=== PATIENT | female | born 1975 | race Caucasian/White ===

== ENCOUNTER 2016-12-06 17:16 | Emergency (ER) | payer SELFPAY ==
[~2016-12-06] VITALS: Ht 160 cm; Wt 58.0 kg
[~2016-12-06 17:16] MED LIST: ADDE10 PO; ADDE20 PO; BETH25TA PO; DIAZ5 PO; PROT40TA PO; SERT100 PO; TOPI200 PO; TRAZ150T75 PO; XANA0.5T PO
[2016-12-06 17:18] VITALS: BP 129/84; PULSE 89; RESP 16; TEMP 98.2; O2SAT 99
[2016-12-06] MEDS ORDERED: ZOLO100T PO (17:34)
[2016-12-06] MEDS ORDERED: DIAZ5 PO (17:34)
[2016-12-06] MEDS ORDERED: TRAZ100T6 PO (17:34)
[2016-12-06] MEDS ORDERED: ALPR.5 PO (17:34)
[2016-12-06] MEDS ORDERED: ADDE20 PO (17:34)
[2016-12-06] MEDS ORDERED: TOPA100T11 PO (17:34)
--- NOTE | 2016-12-06 17:41 | PD ---
HPI Chief Complaint: Abdominal Pain Time Seen by Provider: 17:27 Travel History International Travel<30 days: No Contact w/Intl Traveler<30days: No Traveled to known affect area: No History of Present Illness HPI This 41-year-old female is complaining of abdominal pain. Says she's been having right upper quadrant pain since Saturday and that seems to be getting worse. It involves the right upper quadrant but also present in the right lower quadrant and radiates to the back she has a history of IBS. She has not been vomiting. She has had some nausea today she has frequent loose stools with her IBS. She is not aware of fever or chills. Patient said she did not had pain since her cholecystectomy but review of chart says showed that she was seen in the ER for right upper quadrant pain 6 weeks after cholecystectomy. She does drink alcohol PFSH Past Medical History ADD: Yes ADHD: Yes Anxiety: Yes Depression: Yes Diabetes: No Diminished Hearing: No Endocrine: No Gastrointestinal Disorders: Yes (IBS) GERD: Yes Headaches: Yes Implanted Vascular Access Dvce: Yes Psychiatric: Yes Respiratory: No Migraines: Yes Influenza Vaccination: Yes ?: Not Past Surgical History Abdominal Surgery: Yes (lap appy ) Appendectomy: Yes Body Medical Devices: mirana Cholecystectomy: Yes Other Surgery: No Social History Alcohol Use: Yes (daily) Tobacco Use: Yes (1 ppd) Substance Use: No Allergies-Medications (Allergen,Severity, Reaction): Coded Allergies: Penicillin (Verified Allergy, Severe, 12/06/16) Zithromax (Verified Allergy, Severe, HIVES, 12/06/16) Ciprofloxacin (Verified Allergy, Intermediate, became itchy after infusion. no hives no resp issues, 12/06/16) Reported Meds & Prescriptions Reported Meds & Active Scripts Active Reported Xanax (Alprazolam) 0.5 Mg Tab 0.5 Mg PO Q8H PRN Zoloft (Sertraline HCl) 100 Mg Tab 100 Mg PO DAILY Adderall (Amphetamine-Dextroamphetamine) 20 Mg Tab 20 Mg PO DAILY Avoid late evening doses. Space doses at least 4 to 6 hours if more than once/day dosing. Valium (Diazepam) 5 Mg Tab 5 Mg PO HS PRN Topamax (Topiramate) 100 Mg Tab 100 Mg PO BID Trazodone (Trazodone HCl) 100 Mg Tablet 100 Mg PO HS Review of Systems General / Constitutional: No: Fever, Chills Eyes: No: Diploplia, Blurred Vision HENT: No: Headaches, Vertigo Cardiovascular: No: Chest Pain or Discomfort, Palpitations Respiratory: No: Cough, Shortness of Breath Gastrointestinal: Positive: Nausea, Abdominal Pain Genitourinary: No: Urgency, Frequency Musculoskeletal: No: Myalgias, Arthralgias Skin: No Rash, No Itching Neurologic: No: Weakness, Dizziness Physical Exam Narrative GENERAL: Well-developed female SKIN: Focused skin assessment warm/dry. HEAD: Atraumatic. Normocephalic. EYES: Pupils equal and round. No scleral icterus. No injection or drainage. ENT: No nasal bleeding or discharge. Mucous membranes pink and moist. NECK: Trachea midline. No JVD. CARDIOVASCULAR: Regular rate and rhythm. No murmur appreciated. RESPIRATORY: No accessory muscle use. Clear to auscultation. Breath sounds equal bilaterally. GASTROINTESTINAL: Abdomen soft, right upper quadrant tenderness without guarding or rigidity, nondistended. Hepatic and splenic margins not palpable. MUSCULOSKELETAL: No obvious deformities. No clubbing. No cyanosis. No edema. NEUROLOGICAL: Awake and alert. No obvious cranial nerve deficits. Motor grossly within normal limits. Normal speech. PSYCHIATRIC: Appropriate mood and affect; insight and judgment normal. Data Data Last Documented VS Vital Signs Date Time Temp Pulse Resp B/P Pulse Ox O2 Delivery O2 Flow Rate FiO2 12/06/16 19:11 66 18 129/66 99 Room Air 12/06/16 17:18 98.2 Orders Complete Blood Count With Diff (12/06/16 17:35) Comprehensive Metabolic Panel (12/06/16 17:35) Lipase (12/06/16 17:35) Urinalysis - C+S If Indicated (12/06/16 17:35) Ct Abd/Pel W Iv Contrast(Rout) (12/06/16 17:35) Sodium Chlor 0.9% 1000 Ml Inj (Ns 1000 M (12/06/16 17:45) Ondansetron Inj (Zofran Inj) (12/06/16 17:45) Hydromorphone Pf Inj (Dilaudid Pf Inj) (12/06/16 17:45) Iohexol 350 Inj (Omnipaque 350 Inj) (12/06/16 18:32) Sodium Chlor 0.9% 1000 Ml Inj (Ns 1000 M (12/06/16 18:45) Hydromorphone Pf Inj (Dilaudid Pf Inj) (12/06/16 19:00) Ketorolac Inj (Toradol Inj) (12/06/16 19:00) Labs Laboratory Tests Test 12/06/16 12/06/16 17:50 18:00 White Blood Count 6.2 TH/MM3 Red Blood Count 4.39 MIL/MM3 Hemoglobin 13.8 GM/DL Hematocrit 39.7 % Mean Corpuscular Volume 90.3 FL Mean Corpuscular Hemoglobin 31.4 PG Mean Corpuscular Hemoglobin 34.7 % Concent Red Cell Distribution Width 11.9 % Platelet Count 285 TH/MM3 Mean Platelet Volume 8.0 FL Neutrophils (%) (Auto) 53.4 % Lymphocytes (%) (Auto) 36.9 % Monocytes (%) (Auto) 6.7 % Eosinophils (%) (Auto) 1.8 % Basophils (%) (Auto) 1.2 % Neutrophils # (Auto) 3.3 TH/MM3 Lymphocytes # (Auto) 2.3 TH/MM3 Monocytes # (Auto) 0.4 TH/MM3 Eosinophils # (Auto) 0.1 TH/MM3 Basophils # (Auto) 0.1 TH/MM3 CBC Comment DIFF FINAL Differential Comment Sodium Level 141 MEQ/L Potassium Level 3.8 MEQ/L Chloride Level 109 MEQ/L Carbon Dioxide Level 24.9 MEQ/L Anion Gap 7 MEQ/L Blood Urea Nitrogen 12 MG/DL Creatinine 0.76 MG/DL Estimat Glomerular Filtration 83 ML/MIN Rate Random Glucose 86 MG/DL Calcium Level 8.2 MG/DL Total Bilirubin 0.2 MG/DL Aspartate Amino Transf 10 U/L (AST/SGOT) Alanine Aminotransferase 20 U/L (ALT/SGPT) Alkaline Phosphatase 79 U/L Total Protein 6.7 GM/DL Albumin 3.6 GM/DL Lipase 164 U/L Urine Color YELLOW Urine Turbidity CLEAR Urine pH 6.0 Urine Specific [place] 1.018 Urine Protein NEG mg/dL Urine Glucose (UA) NEG mg/dL Urine Ketones NEG mg/dL Urine Occult Blood NEG Urine Nitrite NEG Urine Bilirubin NEG Urine Leukocyte Esterase NEG Urine RBC 0-2 /hpf Urine WBC 0-2 /hpf Urine Squamous Epithelial 0-5 /hpf Cells Urine Bacteria OCC /hpf Microscopic Urinalysis Comment CULT NOT INDICATED MDM Medical Decision Making Medical Screen Exam Complete: Yes Emergency Medical Condition: Yes Medical Record Reviewed: Yes Differential Diagnosis Differential includes irritable bowel syndrome, retained stone, Narrative Course Hemoglobin is 13.8, white count of 6000. Lipase is 164. Liver function tests are normal. CT scan does not show an etiology for the pain. Patient is complaining of pain and has been given pain medication. Patient has been complaining of pain while here and has been given 2 mg of IV Dilaudid and Toradol. She will be released with prescription for her consent to use temporarily. The pain persists she should follow-up with Dr. Madden Diagnosis Primary Impression: Abdominal pain Qualified Code: R10.11 - Right upper quadrant abdominal pain Scripts Ondansetron Odt (Zofran Odt)4 Mg Tab4 Mg SL Q8HR PRN (Nausea/Vomiting) #10 TAB Ref 0 Prov:Wil Merrill MD 12/06/16 Oxycodone-Acetaminophen (Percocet)10-325 mg Tab1 Tab PO Q4H PRN (PAIN) #20 TAB Ref 0 Prov:Wil Merrill MD 12/06/16 Disposition: 01 DISCHARGE HOME Condition: Stable Wil Merrill MD Dec 06, 2016 17:41
[2016-12-06] MEDS ORDERED: HYDROmorphone HCL PF 1 MG/ML VIAL IV PUSH ONE ×2 (17:45→19:00)
[2016-12-06] MEDS ORDERED: SODIUM CHLOR 0.9% 1000 ML INJ 1,000 ML IV ONE ×2 (17:45→18:45)
[2016-12-06] MEDS ORDERED: ONDANSETRON HCL 4 MG/2 ML VIAL IV PUSH ONE (17:45)
[2016-12-06 18:00] LABS: AUTOMATED NEUTROPHIL # 3.3 TH/MM3 (1.8-7.7); BASOPHIL # 0.1 TH/MM3 (0-0.2); BASOPHIL % 1.2 % (0.0-2.0); EOSINOPHIL # 0.1 TH/MM3 (0-0.4); EOSINOPHIL % 1.8 % (0.0-4.0); HEMATOCRIT 39.7 % (35.0-46.0); HEMO FLAGS DIFF FINAL; LYMPH % 36.9 % (9.0-44.0); LYMPHOCYTE # 2.3 TH/MM3 (1.0-4.8); MEAN CELL VOLUME 90.3 FL (80.0-100.0); MEAN CORPUSCULAR HEMOGLOBIN 31.4 PG (27.0-34.0); MEAN CORPUSCULAR HGB CONC 34.7 % (32.0-36.0); MONO % 6.7 % (0.0-8.0); NEUT % 53.4 % (16.0-70.0); PLATELET COUNT 285 TH/MM3 (150-450); RED BLOOD COUNT 4.39 MIL/MM3 (4.00-5.30); RED CELL DISTRIBUTION WIDTH 11.9 % (11.6-17.2); WHITE BLOOD COUNT 6.2 TH/MM3 (4.0-11.0)
[2016-12-06 18:09] LABS: CHLORIDE 109 MEQ/L (98-107); POTASSIUM 3.8 MEQ/L (3.5-5.1); SODIUM (NA) 141 MEQ/L (136-145)
[2016-12-06 18:11] LABS: BLOOD, URINE NEG (NEG); GLUCOSE,URINE NEG (NEG); KETONE, URINE NEG (NEG); NITRITE,URINE NEG (NEG)
[2016-12-06 18:13] LABS: ANION GAP 7 MEQ/L (5-15); BICARBONATE 24.9 MEQ/L (21.0-32.0); BLOOD UREA NITROGEN 12 MG/DL (7-18)
[2016-12-06 18:15] LABS: ALT (GPT) 20 U/L (10-53)
[2016-12-06 18:16] LABS: AST (GOT) 10 U/L (15-37); GLOMERULAR FILTRATION RATE 83 ML/MIN (>89)
[2016-12-06 18:17] LABS: TOTAL BILIRUBIN ADULT 0.2 MG/DL (0.2-1.0)
[2016-12-06 18:19] LABS: ALKALINE PHOSPHATASE 79 U/L (45-117)
[2016-12-06 18:32] LABS: URINE COLOR YELLOW (YELLW/STRAW)
[2016-12-06] MEDS ORDERED: IOHEXOL 350 MG/ML 10 ML VIAL (for RAD DIAG) IV ONE (18:32)
[2016-12-06 18:33] LABS: BACTERIA, URINE OCC /hpf; COMMENT (UR) CULT NOT INDICATED; CULTURE IF INDICATED CULT NOT INDICATED; RBC, URINE 0-2 /hpf (0-3); SQUAMOUS EPITHELIAL CELL URINE 0-5 /hpf (0-5); WBC, URINE 0-2 /hpf (0-5)
--- NOTE | 2016-12-06 18:40 | RADHPO ---
EXAM DATE/TIME: 12/06/2016 18:17 [facility] COMPARISON: CT ABDOMEN & PELVIS W CONTRAST, December 02, 2015, 19:44. INDICATIONS : Right upper quadrant pain. Nausea. IV CONTRAST: 85 cc Omnipaque 350 (iohexol) IV ORAL CONTRAST: No oral contrast ingested. RADIATION DOSE: 6.38 CTDIvol (mGy) MEDICAL HISTORY : Gastroesophageal reflux disease. Inflammatory bowel disease. SURGICAL HISTORY : Appendectomy. Cholecystectomy. ENCOUNTER: Initial ACUITY: 4 - 6 days PAIN SCALE: 7/10 LOCATION: Right upper quadrant TECHNIQUE: Volumetric scanning of the abdomen and pelvis was performed. Using automated exposure control and ad justment of the mA and/or kV according to patient size, radiation dose was kept as low as reasonably achievable to obtain optimal diagnostic quality images. FINDINGS: LOWER LUNGS: The visualized lower lungs are clear. LIVER: Homogeneous density without lesion. There is no dilation of the biliary tree. Previous cholecystecto my. SPLEEN: Normal size without lesion. PANCREAS: Within normal limits. KIDNEYS: Normal in size and shape. There is no mass, stone or hydronephrosis. ADRENAL GLANDS: Within normal limits. VASCULAR: There is no aortic aneurysm. BOWEL/MESENTERY: The stomach, small bowel, and colon demonstrate no acute abnormality. There is no free intraperitone al air or fluid. ABDOMINAL WALL: Within normal limits. RETROPERITONEUM: There is no lymphadenopathy. BLADDER: No wall thickening or mass. REPRODUCTIVE: IUD appears appropriately positioned. There is a 17 mm left ovarian cyst. No free fluid. INGUINAL: There is no lymphadenopathy or hernia. MUSCULOSKELETAL: Within normal limits for patient age. CONCLUSION: 1. I don't see an abnormality to explain the reported right upper quadrant pain. Patient has had prev ious cholecystectomy. No evidence of biliary obstruction. 2. Small cyst of the left ovary. Abdoul Butler MD on December 06, 2016 at 18:36 Board Certified Radiologist. This report was verified electronically.
[2016-12-06] MEDS ORDERED: KETOROLAC TROMETHAMINE 30 MG/ML (IVP) VIAL IV PUSH ONE (19:00)
[2016-12-06 19:11] VITALS: BP 129/66; PULSE 66; RESP 18; O2SAT 99
[2016-12-06] MEDS ORDERED: PERC10TA27 PO (19:37)
[2016-12-06] MEDS ORDERED: ZOFR4TAB3 SL (19:37)
[2016-12-06 20:05] VITALS: BP 116/65
[2016-12-06 20:08] VITALS: RESP 16
== END 2016-12-06 20:10 | disposition home or self-care (01) ==
LOC: PHED 17:16
DX: R10.11 Right upper quadrant pain (principal); Z88.0 Allergy status to penicillin; Z90.49 Acquired absence of other specified parts of digestive tract
CPT/HCPCS: 74177; 80053; 81001; 83690; 85025; 96361; 96374; 96375; 96376; 99285; J1170; J1885; J2405; J7030; Q9967

== ENCOUNTER 2017-07-16 10:23 | Emergency (ER) | payer SELFPAY ==
[~2017-07-16] VITALS: Ht 160 cm; Wt 58.5 kg
[~2017-07-16 10:23] MED LIST changes: -ADDE10 PO; +ALPR.5 PO; -BETH25TA PO; +PERC10TA27 PO; -PROT40TA PO; -SERT100 PO; +TOPI100 PO; -TOPI200 PO; +TRAZ100T10 PO; -TRAZ150T75 PO; -XANA0.5T PO; +ZOFR4TAB3 SL; +ZOLO100T PO
[2017-07-16 10:29] VITALS: BP 138/78; PULSE 93; RESP 16; TEMP 99; O2SAT 100
[2017-07-16] MEDS ORDERED: KETOROLAC TROMETHAMINE 30 MG/ML (IVP) VIAL IV PUSH ONE (10:45)
[2017-07-16] MEDS ORDERED: ONDANSETRON HCL 4 MG/2 ML VIAL IV PUSH ONE (10:45)
--- NOTE | 2017-07-16 10:45 | PD ---
HPI Chief Complaint: GI Complaint Time Seen by Provider: 10:34 Travel History International Travel<30 days: No Contact w/Intl Traveler<30days: No Traveled to known affect area: No History of Present Illness HPI 41 y/o female presents with nausea, upper abdominal pain that is been present over the past 4 weeks and increased in intensity. She states she has no other concurrent complaints at this time. Her last bowel movement was yesterday and normal. She denies specific modifying factors. She has not seen a physician for this showed. Quality is dull. Severity is worsening. Duration is one month. PFSH Past Medical History ADD: Yes ADHD: Yes Anxiety: Yes Depression: Yes Diabetes: No Diminished Hearing: No Endocrine: No Gastrointestinal Disorders: Yes (IBS) GERD: Yes Headaches: Yes Implanted Vascular Access Dvce: Yes Psychiatric: Yes Respiratory: No Migraines: Yes Past Surgical History Abdominal Surgery: Yes (lap appy ) Appendectomy: Yes Body Medical Devices: mirana Cholecystectomy: Yes Other Surgery: No Social History Alcohol Use: Yes (daily) Tobacco Use: Yes (1 ppd) Substance Use: No Allergies-Medications (Allergen,Severity, Reaction): Coded Allergies: azithromycin (Unverified Allergy, Severe, HIVES, 07/16/17) penicillin G (Unverified Allergy, Severe, 07/16/17) ciprofloxacin (Unverified Allergy, Intermediate, became itchy after infusion. no hives no resp issues, 07/16/17) latex (Verified Allergy, Unknown, 07/16/17) Reported Meds & Prescriptions Reported Meds & Active Scripts Active Reported Xanax (Alprazolam) 0.5 Mg Tab 0.5 Mg PO Q8H PRN Zoloft (Sertraline HCl) 100 Mg Tab 100 Mg PO DAILY Adderall (Amphetamine-Dextroamphetamine) 20 Mg Tab 20 Mg PO DAILY Avoid late evening doses. Space doses at least 4 to 6 hours if more than once/day dosing. Valium (Diazepam) 5 Mg Tab 5 Mg PO HS PRN Topamax (Topiramate) 100 Mg Tab 100 Mg PO BID Trazodone (Trazodone HCl) 100 Mg Tablet 100 Mg PO HS Review of Systems Except as stated in HPI: all other systems reviewed are Neg Physical Exam Narrative GENERAL: Well-nourished, well-developed patient. SKIN: Warm and dry. HEAD: Normocephalic and atraumatic. EYES: No injection or drainage. ENT: No nasal drainage noted. NECK: Supple, trachea midline. CARDIOVASCULAR: Regular rate and rhythm RESPIRATORY: no increased effort. No accessory muscle use. GASTROINTESTINAL: Abdomen soft, mild ttp diffusely, nondistended. EXTREMITIES: No edema. NEUROLOGICAL: Awake and alert. Motor and sensory grossly within normal limits. Normal speech. Data Data Last Documented VS Vital Signs Date Time Temp Pulse Resp B/P (MAP) Pulse Ox O2 Delivery O2 Flow Rate FiO2 07/16/17 11:58 67 125/73 (90) 100 07/16/17 11:19 98.6 18 Room Air Orders Orders Complete Blood Count With Diff (07/16/17 10:38) Comprehensive Metabolic Panel (07/16/17 10:38) Urinalysis - C+S If Indicated (07/16/17 10:38) Lipase (07/16/17 10:38) Ct Abd/Pel W/O Iv Contrast (07/16/17 ) Iv Access Insert/Monitor (07/16/17 10:38) Ed Urine Pregnancytest Poc (07/16/17 10:38) Ondansetron Inj (Zofran Inj) (07/16/17 10:45) Ketorolac Inj (Toradol Inj) (07/16/17 10:45) Blood Glucose (07/16/17 11:29) Ed Discharge Order (07/16/17 11:50) Labs Laboratory Tests Test 07/16/17 10:45 07/16/17 10:50 Urine Collection Type CLEAN CATCH Urine Color YELLOW Urine Turbidity CLEAR Urine pH 5.5 Urine Specific [place] 1.018 Urine Protein NEG mg/dL Urine Glucose (UA) NEG mg/dL Urine Ketones NEG mg/dL Urine Occult Blood NEG Urine Nitrite NEG Urine Bilirubin NEG Urine Leukocyte Esterase NEG Urine WBC 0-2 /hpf Urine Squamous Epithelial Cells 0-5 /hpf Microscopic Urinalysis Comment CULT NOT INDICATED Urine Collection Time 10:45 White Blood Count 6.1 TH/MM3 Red Blood Count 4.74 MIL/MM3 Hemoglobin 14.0 GM/DL Hematocrit 43.6 % Mean Corpuscular Volume 92.0 FL Mean Corpuscular Hemoglobin 29.5 PG Mean Corpuscular Hemoglobin Concent 32.0 % Red Cell Distribution Width 12.8 % Platelet Count 308 TH/MM3 Mean Platelet Volume 8.1 FL Neutrophils (%) (Auto) 60.1 % Lymphocytes (%) (Auto) 30.2 % Monocytes (%) (Auto) 7.3 % Eosinophils (%) (Auto) 1.5 % Basophils (%) (Auto) 0.9 % Neutrophils # (Auto) 3.7 TH/MM3 Lymphocytes # (Auto) 1.8 TH/MM3 Monocytes # (Auto) 0.4 TH/MM3 Eosinophils # (Auto) 0.1 TH/MM3 Basophils # (Auto) 0.1 TH/MM3 CBC Comment DIFF FINAL Differential Comment Blood Urea Nitrogen 9 MG/DL Creatinine 0.83 MG/DL Random Glucose 62 MG/DL Total Protein 7.5 GM/DL Albumin 4.2 GM/DL Calcium Level 8.7 MG/DL Alkaline Phosphatase 81 U/L Aspartate Amino Transf (AST/SGOT) 16 U/L Alanine Aminotransferase (ALT/SGPT) 20 U/L Total Bilirubin 0.4 MG/DL Sodium Level 138 MEQ/L Potassium Level 3.7 MEQ/L Chloride Level 107 MEQ/L Carbon Dioxide Level 24.6 MEQ/L Anion Gap 6 MEQ/L Estimat Glomerular Filtration Rate 75 ML/MIN Lipase 160 U/L MDM Medical Decision Making Medical Screen Exam Complete: Yes Emergency Medical Condition: Yes Medical Record Reviewed: Yes (pmh confirmed) Interpretation(s) CBC & BMP Diagram 07/16/17 10:50 Total Protein 7.5, Albumin 4.2, Calcium Level 8.7, Alkaline Phosphatase 81, Aspartate Amino Transf (AST/SGOT) 16, Alanine Aminotransferase (ALT/SGPT) 20, Total Bilirubin 0.4 ct abdomen pelvis no acute ua no acute accucheck is in eighties after bmp resulted Differential Diagnosis Kidney stone, UTI, pancreatitis Narrative Course Will check blood work, urinalysis, CT scan and dose of medication and reevaluate ed workup no acute, Patient denies any new complaints and states that they are feeling better. all questions answered. Patient knows that follow up is incumbent on them and to return to the emergency room immediately if new or worsening symptoms develop. Patient given strict return precautions, vitals reviewed and are normal, agrees to further workup as an outpatient. Diagnosis Primary Impression: Abdominal pain Qualified Codes: R10.84 - Generalized abdominal pain Patient Instructions: General Instructions Additional Instructions: return as needed, tylenol as needed, follow with primary Med/Other Pt SpecificInfo: No Change to Meds Disposition: 01 DISCHARGE HOME Condition: Stable Sarai Rivas MD Jul 16, 2017 10:45
[2017-07-16 10:51] LABS: BILIRUBIN, URINE NEG (NEG); BLOOD, URINE NEG (NEG); GLUCOSE,URINE NEG (NEG); KETONE, URINE NEG (NEG); NITRITE,URINE NEG (NEG); PH, URINE 5.5 (5.0-8.5); URINE LEUKOCYTE ESTERASE NEG (NEG)
[2017-07-16 10:58] LABS: SQUAMOUS EPITHELIAL CELL URINE 0-5 /hpf (0-5); URINE COLOR YELLOW (YELLW/STRAW); WBC, URINE 0-2 /hpf (0-5)
[2017-07-16 11:02] LABS: AUTOMATED NEUTROPHIL # 3.7 TH/MM3 (1.8-7.7); BASOPHIL # 0.1 TH/MM3 (0-0.2); BASOPHIL % 0.9 % (0.0-2.0); EOSINOPHIL # 0.1 TH/MM3 (0-0.4); EOSINOPHIL % 1.5 % (0.0-4.0); HEMATOCRIT 43.6 % (35.0-46.0); LYMPH % 30.2 % (9.0-44.0); LYMPHOCYTE # 1.8 TH/MM3 (1.0-4.8); MEAN CORPUSCULAR HEMOGLOBIN 29.5 PG (27.0-34.0); MEAN PLATELET VOLUME 8.1 FL (7.0-11.0); MONO % 7.3 % (0.0-8.0); MONOCYTE # 0.4 TH/MM3 (0-0.9); NEUT % 60.1 % (16.0-70.0); PLATELET COUNT 308 TH/MM3 (150-450); RED BLOOD COUNT 4.74 MIL/MM3 (4.00-5.30); RED CELL DISTRIBUTION WIDTH 12.8 % (11.6-17.2); WHITE BLOOD COUNT 6.1 TH/MM3 (4.0-11.0)
[2017-07-16 11:13] LABS: CHLORIDE 107 MEQ/L (98-107); SODIUM (NA) 138 MEQ/L (136-145)
[2017-07-16 11:17] LABS: ALBUMIN 4.2 GM/DL (3.4-5.0); BICARBONATE 24.6 MEQ/L (21.0-32.0); BLOOD UREA NITROGEN 9 MG/DL (7-18); CALCIUM 8.7 MG/DL (8.5-10.1); GLUCOSE,RANDOM 62 MG/DL (74-106); LIPASE 160 U/L (73-393)
[2017-07-16 11:19] VITALS: BP 137/68; PULSE 74; RESP 18; TEMP 98.6; O2SAT 100
[2017-07-16 11:20] LABS: ALT (GPT) 20 U/L (10-53); AST (GOT) 16 U/L (15-37); CREATININE 0.83 MG/DL (0.50-1.00); GLOMERULAR FILTRATION RATE 75 ML/MIN (>89)
[2017-07-16 11:22] LABS: TOTAL BILIRUBIN ADULT 0.4 MG/DL (0.2-1.0); TOTAL PROTEIN 7.5 GM/DL (6.4-8.2)
[2017-07-16 11:23] LABS: ALKALINE PHOSPHATASE 81 U/L (45-117)
--- NOTE | 2017-07-16 11:45 | RADRPT ---
EXAM DATE/TIME: 07/16/2017 11:26 [facility] COMPARISON: No previous studies available for comparison. INDICATIONS : Diffuse abdominal pain for one month. ORAL CONTRAST: No oral contrast ingested. RADIATION DOSE: 10.05 CTDIvol (mGy) MEDICAL HISTORY : Gastroesophageal reflux disease. SURGICAL HISTORY : Appendectomy. Cholecystectomy. ENCOUNTER: Initial ACUITY: 1 month PAIN SCALE: 8/10 LOCATION: pelvis abdomen : UrineNo If Y, explain: LABS: BUN: Hgb: PT: Creatinine: Hct: APTT: GFR: Platelets: INR: D-Dimer: WBC: Beta:Previous IV Contras t? Previous reaction to iodinated contrast: Explain: Taking Glucophage, Glucovance, Avandamet, Met formin, Metformin/glyburide, Metformin/rosaiglitazone) - hold 48 hours post IV contrast. TECHNIQUE: Volumetric scanning of the abdomen and pelvis was performed. Using automated exposure control and ad justment of the mA and/or kV according to patient size, radiation dose was kept as low as reasonably achievable to obtain optimal diagnostic quality images. DICOM format image data is available electro nically for review and comparison. FINDINGS: Visualized lung bases clear. No acute findings in the liver, spleen, adrenals, kidneys or pancreas. P revious cholecystectomy and appendectomy. No free fluid. No bowel obstruction. No adenopathy. Intrauterine device present. No acute bony abnorm alities. CONCLUSION: 1. No acute findings. Intrauterine device present. No hydronephrosis or obstructive uropathy. Storm Byrd MD on July 16, 2017 at 11:40 Board Certified Radiologist. This report was verified electronically.
[2017-07-16 11:58] VITALS: BP 125/73
== END 2017-07-16 12:23 | disposition home or self-care (01) ==
LOC: PHED 10:23
DX: R10.84 Generalized abdominal pain (principal); F90.9 Attention-deficit hyperactivity disorder, unspecified type; F32.9 Major depressive disorder, single episode, unspecified; F17.200 Nicotine dependence, unspecified, uncomplicated
CPT/HCPCS: 74176; 80053; 81001; 83690; 84703; 85025; 96374; 96375; 99284; J1885; J2405

== ENCOUNTER 2017-12-10 18:33 | Emergency (ER) | payer OTHER ==
[~2017-12-10] VITALS: Ht 160 cm; Wt 62.4 kg
[~2017-12-10 18:33] MED LIST changes: -PERC10TA27 PO; -ZOFR4TAB3 SL
[2017-12-10 18:44] VITALS: BP 161/74; PULSE 91; RESP 18; TEMP 98.9; O2SAT 99
[2017-12-10] MEDS ORDERED: PRED20 PO (19:15)
[2017-12-10] MEDS ORDERED: CYCL5TAB PO (19:15)
--- NOTE | 2017-12-10 19:24 | PD ---
HPI Chief Complaint: Musculoskeletal Complaint Time Seen by Provider: 19:04 Travel History International Travel<30 days: No Contact w/Intl Traveler<30days: No Traveled to known affect area: No History of Present Illness HPI 42 year old female presents to the emergency department for evaluation of neck pain, right shoulder pain that started on Saturday, 6 days ago. Patient states that while at work she was fixing a chair and twisted over. She states she immediately had pain in the neck and right shoulder. She states the pain is worsened with movement of the right arm. She states the pain radiates down the right arm and reports some paresthesias as well. Patient states she has has trouble gripping objects due to the pain. She went to [facility] when the injury occurred and was given a prescription for naproxen. She states she went back yesterday and was given a steroid and Flexeril. She states that she was told that she would need physical therapy, but has not been able to see a physical therapist. No fevers or chills. No traumatic injury. She had no pain before she twisted. The pain is mainly in the right shoulder, right trapezius muscle. Current pain is 9/10, aching and throbbing. Mild severity. PFSH Past Medical History ADD: Yes ADHD: Yes Anxiety: Yes Depression: Yes Diabetes: No Diminished Hearing: No Endocrine: No Gastrointestinal Disorders: Yes (IBS) GERD: Yes Headaches: Yes Implanted Vascular Access Dvce: Yes Psychiatric: Yes Respiratory: No Migraines: Yes Tetanus Vaccination: > 5 Years Influenza Vaccination: No ?: Not LMP: 12/10/17 Past Surgical History Abdominal Surgery: Yes (lap appy ) Appendectomy: Yes Body Medical Devices: mirana Cholecystectomy: Yes Other Surgery: No Social History Alcohol Use: Yes (daily) Tobacco Use: Yes (1 ppd) Substance Use: No Allergies-Medications (Allergen,Severity, Reaction): Coded Allergies: azithromycin (Unverified Allergy, Severe, HIVES, 12/10/17) penicillin G (Unverified Allergy, Severe, 12/10/17) ciprofloxacin (Unverified Allergy, Intermediate, became itchy after infusion. no hives no resp issues, 12/10/17) latex (Verified Allergy, Unknown, 12/10/17) Reported Meds & Prescriptions Reported Meds & Active Scripts Active Reported Prednisone 20 Mg Tab 20 Mg PO DIRECTED 40 MG twice a day x 3 days, then 20 MG daily x 3 days, then 10 MG daily x 3 days Flexeril (Cyclobenzaprine HCl) 5 Mg Tab 5 Mg PO TID Xanax (Alprazolam) 0.5 Mg Tab 0.5 Mg PO Q8H PRN Zoloft (Sertraline HCl) 100 Mg Tab 200 Mg PO DAILY Adderall (Amphetamine-Dextroamphetamine) 20 Mg Tab 20 Mg PO DAILY Avoid late evening doses. Space doses at least 4 to 6 hours if more than once/day dosing. Valium (Diazepam) 5 Mg Tab 5 Mg PO HS PRN Topamax (Topiramate) 100 Mg Tab 100 Mg PO BID Trazodone (Trazodone HCl) 100 Mg Tablet 100 Mg PO HS Review of Systems Except as stated in HPI: all other systems reviewed are Neg Physical Exam Narrative GENERAL: Well-nourished, well-developed female patient, ambulatory. Afebrile. SKIN: Focused skin assessment warm/dry. HEAD: Normocephalic. Atraumatic. EYES: No scleral icterus. No injection or drainage. NECK: Supple, trachea midline. No JVD or lymphadenopathy. CARDIOVASCULAR: Regular rate and rhythm without murmurs, gallops, or rubs. Bilateral radial pulses are 2+. RESPIRATORY: Breath sounds equal bilaterally. No accessory muscle use. Lung sounds are clear to auscultation. GASTROINTESTINAL: Abdomen soft, non-tender, nondistended. MUSCULOSKELETAL: No cyanosis, or edema. Patient has full range of motion of the right arm. Bilateral upper extremity strength 5/5. BACK: Nontender without obvious deformity. No CVA tenderness. Data Data Last Documented VS Vital Signs Date Time Temp Pulse Resp B/P (MAP) Pulse Ox O2 Delivery O2 Flow Rate FiO2 12/10/17 18:44 98.9 91 18 161/74 (103) [address] Cerv Spine W/O Contrast (12/10/17 ) Shoulder, Complete (>2vws) (12/10/17 ) Ketorolac Inj (Toradol Inj) (12/10/17 19:30) Orphenadrine Inj (Norflex Inj) (12/10/17 19:30) Acetamin-Hydrocod 325-5 Mg ([place] 5-325 (12/10/17 20:45) MDM Medical Decision Making Medical Screen Exam Complete: Yes Emergency Medical Condition: Yes Medical Record Reviewed: Yes Interpretation(s) Last Impressions Shoulder X-Ray 12/10/17 0000 Signed Impressions: CONCLUSION: 1. No acute fracture or dislocation. Cervical Spine CT 12/10/17 0000 Signed Impressions: CONCLUSION: 1. No acute fracture or subluxation. 2. Degenerative spondylosis of the lower cervical spine most prominently at C5 -6 and C6-7. Differential Diagnosis Cervical radiculopathy versus muscle strain versus muscle spasm versus herniated disc Narrative Course 42-year-old female presents to the emergency department for evaluation of neck pain and right arm pain after she twisted 6 days ago. Patient is given Toradol 60 mg IM, Norflex 60 mg IM. X-ray of the right shoulder, CT the cervical spine are ordered and pending. X-ray of the right shoulder shows no acute fracture or dislocation. CT of the cervical spine shows no acute fracture or subluxation, degenerative spondylosis of the lower cervical spine most prominently at C5-6 and C6-7. Patient is instructed on the need to follow-up with Worker's Comp. physician. She will be given a short-term prescription for [place] and diclofenac. I did look the patient up on [facility] before giving prescription. She is given a [place] here for pain before discharge. Her daughter is driving her home. She is instructed to follow-up or return here for any acute worsening of symptoms. The patient was discharged in stable condition with instructions, including return instructions and follow up instructions. Diagnosis Primary Impression: Cervical radiculopathy Additional Impression: Muscle strain Patient Instructions: Cervical Strain (ED), General Instructions Additional Instructions: Continue heating pad on low for 20 minutes 4-5 times daily. Take [place] as directed as needed for moderate to severe pain. Cautioned this can make you drowsy so do not drive after taking. Take diclofenac as directed as needed for [id number] pain. Do not take with other anti-inflammatories including ibuprofen and naproxen. Follow-up with your Worker's Comp. physician. Return to the emergency department for any acute worsening of symptoms. Med/Other Pt SpecificInfo: Prescription(s) given Scripts Diclofenac Potassium (Diclofenac Potassium) 50 Mg Tab 50 MG PO TID Y for PAIN SCALE 1 TO 10, #21 TAB 0 Refills Prov: Kavya Wong 12/10/17 Hydrocodone-Acetaminophen ([place]) 5 Mg-325 Mg Tab 1 TAB PO Q6H Y for PAIN, #10 TAB 0 Refills Prov: Kavya Wong 12/10/17 Disposition: 01 DISCHARGE HOME Condition: Stable Kavya Wong Dec 10, 2017 19:24
[2017-12-10] MEDS ORDERED: KETOROLAC TROMETHAMINE 60 MG/2 ML (IM) VIAL IM ONE (19:30)
[2017-12-10] MEDS ORDERED: ORPHENADRINE INJ 60 MG/2 ML AMP IM ONE (19:30)
--- NOTE | 2017-12-10 19:59 | RADRPT ---
EXAM DATE: 12/10/2017 7:40 PM EDT AGE/SEX: 42 years / Female INDICATIONS: Pain after putting a chair together last week. Pain throughout entire right shoudler wi th limited ROM. CLINICAL DATA: This is the patient's initial encounter. Patient reports that signs and symptoms have been present for 1 week and indicates a pain score of 6/10. MEDICAL/SURGICAL HISTORY: None. None. COMPARISON: No prior exams available for comparison. FINDINGS: Bony structures are intact and in normal alignment. Joints are intact without dislocation or signifi cant arthropathy. Osseous density is normal. Soft tissues are unremarkable. No radiopaque foreign bodies seen. CONCLUSION: 1. No acute fracture or dislocation. Electronically signed by: Kirk Piedra MD 12/10/2017 7:58 PM EDT
--- NOTE | 2017-12-10 20:28 | RADRPT ---
EXAM DATE: 12/10/2017 8:18 PM EDT AGE/SEX: 42 years / Female INDICATIONS: Neck pain from twisting 6 days ago CLINICAL DATA: This is the patient's initial encounter. Patient reports that signs and symptoms have been present for 4 - 6 days and indicates a pain score of 8/10. MEDICAL/SURGICAL HISTORY: Vertigo. Appendectomy. Cholecystectomy. RADIATION DOSE: 23.93 CTDI (mGy) COMPARISON: No prior exams available for comparison. TECHNIQUE: Contiguous axial images were obtained using helical multirow detector technique. The vol umetric data was post-processed with multiplanar reconstruction in oblique axial, sagittal, and coron al planes. Using automated exposure control and adjustment of the mA and/or kV according to patient s ize, radiation dose was kept as low as reasonably achievable to obtain optimal diagnostic quality malathi ges. DICOM format image data is available electronically for review and comparison. FINDINGS: OSSEOUS STRUCTURES: Vertebral body heights are maintained. Osseous structures are intact without evid ence for acute bony fracture. Dens is intact. ALIGNMENT: Loss of normal cervical lordosis. Sagittal alignment is maintained. There is a normal C1-2 relationship. Facets are normally aligned. SOFT TISSUES: There is no significant prevertebral soft tissue hematoma. No significant cervical paloma nopathy or gross mass. The thyroid appears unremarkable. Visualized lung apices are clear without pn eumothorax. ADDITIONAL FINDINGS: Degenerative spondylosis of the lower cervical spine most prominently at C5-6 an d C6-7 with mild disc space narrowing and osteophyte formation. Minimal effacement anterior thecal sa c secondary to posterior osteophytes. Bony neural foramina are patent. CONCLUSION: 1. No acute fracture or subluxation. 2. Degenerative spondylosis of the lower cervical spine most prominently at C5-6 and C6-7. Electronically signed by: Kirk Piedra MD 12/10/2017 8:27 PM EDT
[2017-12-10] MEDS ORDERED: DICL50TA PO (20:36)
[2017-12-10] MEDS ORDERED: NORC5TAB PO (20:36)
[2017-12-10] MEDS ORDERED: ACETAMINOPHEN/HYDROcodone 325 MG/5 MG TAB PO ONE (20:45)
[2017-12-10 21:22] VITALS: BP 151/82
== END 2017-12-10 21:45 | disposition home or self-care (01) ==
LOC: PHEFT 18:33
DX: M47.22 Other spondylosis with radiculopathy, cervical region (principal); S16.1XXA Strain of muscle, fascia and tendon at neck level, initial encounter; X50.1XXA Overexertion from prolonged static or awkward postures, initial encounter; Y99.0 Civilian activity done for income or pay; F32.9 Major depressive disorder, single episode, unspecified; F41.9 Anxiety disorder, unspecified; K21.9 Gastro-esophageal reflux disease without esophagitis; F17.210 Nicotine dependence, cigarettes, uncomplicated; Z88.0 Allergy status to penicillin; Z88.1 Allergy status to other antibiotic agents; Z79.899 Other long term (current) drug therapy
CPT/HCPCS: 72125; 73030; 96372; 99284; J1885; J2360